=== PATIENT | female | born 1975 | race Native Hawaiian/Other Pacific Islander ===

== ENCOUNTER 2017-09-01 05:27 | Inpatient (IN) | payer OTHER ==
[2017-09-01] VITALS (51 sets, daily range): BP systolic 99–124; BP diastolic 55–80; PULSE 75–139; RESP 16–20; TEMP 97.5–99
[~2017-09-01] VITALS: Ht 167.6 cm; Wt 68.0 kg
[~2017-09-01 05:27] MED LIST: HYDR25 PO; PRED20 PO; RANI300T PO
[2017-09-01] MEDS ORDERED: PREN29TA PO (06:18)
[2017-09-01 06:25] LABS: AUTOMATED NEUTROPHIL # 6.7 TH/MM3 (1.8-7.7); BASOPHIL % 0.4 % (0.0-2.0); EOSINOPHIL # 0.2 TH/MM3 (0-0.4); HEMATOCRIT 33.2 % (35.0-46.0); HEMOGLOBIN 11.5 GM/DL (11.6-15.3); LYMPH % 28.1 % (9.0-44.0); MEAN CELL VOLUME 96.8 FL (80.0-100.0); MEAN CORPUSCULAR HEMOGLOBIN 33.5 PG (27.0-34.0); MEAN CORPUSCULAR HGB CONC 34.6 % (32.0-36.0); MEAN PLATELET VOLUME 9.3 FL (7.0-11.0); MONO % 7.6 % (0.0-8.0); MONOCYTE # 0.8 TH/MM3 (0-0.9); NEUT % 61.9 % (16.0-70.0); PLATELET COUNT 259 TH/MM3 (150-450); RED BLOOD COUNT 3.44 MIL/MM3 (4.00-5.30); RED CELL DISTRIBUTION WIDTH 12.4 % (11.6-17.2); WHITE BLOOD COUNT 10.8 TH/MM3 (4.0-11.0)
[2017-09-01 06:27] LABS: BACTERIA, URINE MOD /hpf; BILIRUBIN, URINE NEG (NEG); BLOOD, URINE NEG (NEG); GLUCOSE,URINE NEG (NEG); KETONE, URINE NEG (NEG); MUCUS URINE FEW /lpf (OCC); NITRITE,URINE NEG (NEG); RENAL EPITHELIAL CELLS 2 /hpf; SQUAMOUS EPITHELIAL CELL URINE 2 /hpf (0-5); TRANSITIONAL EPI CELLS, URINE <1 /hpf; URINE COLOR LIGHT-YELLOW (YELLW/STRAW); URINE LEUKOCYTE ESTERASE NEG (NEG)
[2017-09-01] MEDS ORDERED: LIDOCAINE HCL 1% 50 ML VIAL INFIL PRN (06:45)
[2017-09-01] MEDS ORDERED: OXYTOCIN 30 UNITS/NS 500ML PREMIX IV SCH (06:45)
[2017-09-01] MEDS ORDERED: LIDOCAINE HCL 1% 50 ML VIAL I-DERMAL PRN (06:45)
[2017-09-01] MEDS ORDERED: OXYTOCIN 30 UNITS 500ML PREMIX IV ONE (06:45)
[2017-09-01] MEDS ORDERED: ONDANSETRON HCL 4 MG/2 ML VIAL IV PUSH PRN (06:45)
[2017-09-01] MEDS ORDERED: MINERAL OIL 10 ML VIAL TOPICAL PRN (06:45)
[2017-09-01] MEDS ORDERED: NS 1000 ML IV PRN (06:45)
[2017-09-01] MEDS ORDERED: CITRIC ACID-SODIUM CITRATE LIQ 30 ML UDC PO SCH (06:45)
[2017-09-01] MEDS ORDERED: LACTATED RINGER'S 1000 ML BOLUS IV PRN (06:45)
[2017-09-01] MEDS ORDERED: ZOLPIDEM TARTRATE 10 MG TAB PO PRN (06:45)
[2017-09-01] MEDS ORDERED: NS 500 ML BOLUS IV PRN (06:45)
[2017-09-01] MEDS: LACTATED RINGER'S 1000 ML IV SCH ×2 (06:45→16:03)
[2017-09-01] MEDS ORDERED: fentaNYL 2MCG-BUPIV 0.125% INJ 100 ML ONE (08:57)
[2017-09-01] MEDS ORDERED: DO NOT ADMINISTER ANTICOAGULANTS PRN (10:45)
[2017-09-01] MEDS ORDERED: NO SYSTEM NARCOTICS PRN (10:45)
[2017-09-01] MEDS ORDERED: ePHEDrine/NS 25 MG/5 ML SYRINGE IV PUSH PRN (10:45)
[2017-09-01] MEDS ORDERED: fentaNYL 2MCG-BUPIV 0.125% 100 ML EPIDURAL SCH (11:00)
[2017-09-01] MEDS ORDERED: MEASLES, MUMPS, RUBELLA VACCINE 0.5 ML VIAL SQ ONE (16:00)
[2017-09-01] MEDS ORDERED: DIPHTH/TETANUS/ACEL PERTUSSIS (BOOSTER) 0.5 ML VIAL/PFS IM ONE (16:00)
--- NOTE | 2017-09-01 17:05 | PD.OB.DELI ---
Weeks gestation: 39 Gest age assessed date: Sep 01, 2017 Pt started active labor?: No Medical induction of labor?: Yes Medical induction start date: Sep 01, 2017 Medical induction start time: 06:00 Artificial rupture of membrane: Yes Artificial ROM date: Sep 01, 2017 Artifical ROM time: 08:00 Anesthesia: Epidural Episiotomy: None Vaginal Delivery: Normal Presentation: Occiput anterior Nuchal Cord: None Delayed cord clamping (45 sec): Yes : Male Delivery date: Sep 01, 2017 Delivery time: 16:46 One Minute : 8 Five Minute : 9 Weight: 8-6 Placenta: Spontaneous delivery, Intact, 3 vessel cord Laceration: Vaginal laceration, 1 deg Repair: Chromic interrupted Estimated blood loss: 300 Jania Marin MD Sep 01, 2017 17:04
[2017-09-01] MEDS ORDERED: ALUMINUM/MAGNESIUM/SIMETH 30 ML CUP PO PRN (17:15)
[2017-09-01] MEDS ORDERED: OXYTOCIN 30 UNITS-500ML PREMIX 500 ML IV SCH (17:15)
[2017-09-01] MEDS ORDERED: oxyCODONE/ACETAMINOPHEN 5 MG/325 MG TAB PO PRN ×2 (17:15)
[2017-09-01] MEDS ORDERED: ONDANSETRON ODT 4 MG TAB PO PRN (17:15)
[2017-09-01] MEDS ORDERED: ZOLPIDEM TARTRATE 5 MG TAB PO PRN (17:15)
[2017-09-01] MEDS ORDERED: WITCH HAZEL 50%/GLYCERIN 12.5% 40 PAD JAR TOPICAL PRN (17:15)
[2017-09-01] MEDS ORDERED: SODIUM CHLORIDE 0.9% FLUSH 10 ML FLUSH IV FLUSH PRN (17:15)
[2017-09-01] MEDS ORDERED: ACETAMINOPHEN 325 MG TAB PO PRN (17:15)
[2017-09-01] MEDS ORDERED: DOCUSATE SODIUM 50 MG/SENNA 8.6 MG TAB PO PRN (17:15)
[2017-09-01] MEDS ORDERED: BENZOCAINE 20% TOPICAL SPRAY 60 ML CAN TOPICAL PRN (17:15)
[2017-09-01] MEDS ORDERED: SODIUM CHLORIDE 0.9% FLUSH 10 ML FLUSH IV FLUSH SCH (21:00)
[2017-09-02] MEDS: IBUPROFEN 800 MG TAB PO PRN ×2 (05:21→17:05)
[2017-09-02 08:00] VITALS: BP 97/59; PULSE 76; RESP 18; TEMP 98.5; O2SAT 100
--- NOTE | 2017-09-02 12:10 | HHI.OB ---
Subjective Post Day: 1 Remarks Pt doing well Objective Vitals/I&O Vital Signs Date Time Temp Pulse Resp B/P (MAP) Pulse Ox O2 Delivery O2 Flow Rate FiO2 09/02/17 08:00 98.5 76 18 100 09/02/17 08:00 97/59 (72) 09/01/17 19:30 99.0 97 20 103/59 (74) 09/01/17 18:14 16 09/01/17 18:00 95 110/69 (83) 09/01/17 17:54 16 09/01/17 17:46 98 113/69 (84) 09/01/17 17:33 16 09/01/17 17:31 97 124/75 (91) 09/01/17 17:17 16 09/01/17 17:15 100 111/65 (80) 09/01/17 17:02 18 09/01/17 17:02 112 101/58 (72) 09/01/17 16:23 98.1 09/01/17 16:05 111 09/01/17 16:03 16 09/01/17 16:00 94 112/67 (82) 09/01/17 16:00 125 09/01/17 15:40 124 09/01/17 15:35 104 09/01/17 15:30 110 09/01/17 15:30 103 111/66 (81) 09/01/17 15:10 92 09/01/17 15:05 86 09/01/17 15:00 99 09/01/17 15:00 109 100/64 (76) 09/01/17 14:40 127 09/01/17 14:35 139 09/01/17 14:30 108 110/68 (82) 09/01/17 14:30 104 09/01/17 14:03 97.5 09/01/17 14:03 18 09/01/17 14:00 106 09/01/17 14:00 108 110/64 (79) 09/01/17 12:40 79 09/01/17 12:35 80 09/01/17 12:30 84 107/63 (78) 09/01/17 12:30 84 Objective Remarks GENERAL: Well-nourished, well-developed patient. CARDIOVASCULAR: Regular rate and rhythm without murmurs, gallops, or rubs. RESPIRATORY: Breath sounds equal bilaterally. No accessory muscle use. ABDOMEN/GI: Abdomen soft, non-tender. Fundus: Firm, non-tender at umbilicus. GENITOURINARY: Light to moderate bleeding. EXTREMITIES: No cyanosis or edema, non-tender, without signs of DVT. Medications and IVs Current Medications Medications (Trade) Dose Ordered Sig/Bereket Route Start Time Stop Time Status Last Admin Oxytocin 500 ml @ 0 mls/hr TITRATE IV 09/01/17 06:45 09/01/17 06:45 (Ambien) 10 mg HS PRN PO 09/01/17 06:45 Lactated Ringer's 1,000 ml @ 125 mls/hr Q8H IV 09/01/17 06:45 09/01/17 16:03 Lactated Ringer's 1,000 ml @ 3,000 mls/hr BOLUS PRN IV 09/01/17 06:45 09/01/17 16:03 Sodium Chloride 500 ml @ 1,000 mls/hr BOLUS PRN IV 09/01/17 06:45 Sodium Chloride 1,000 ml @ 100 mls/hr Q10H PRN IV 09/01/17 06:45 (Bicitra Liq) [address] [employer] PO 09/01/17 06:45 09/04/17 06:44 (Zofran Inj) 4 mg Q6H PRN IV PUSH 09/01/17 06:45 09/01/17 14:36 (fentaNYL INJ) 50 mcg Q1H PRN IV PUSH 09/01/17 06:45 (fentaNYL INJ) 100 mcg Q1H PRN IV PUSH 09/01/17 06:45 (Muri-Lube Oil) 10 ml UNSCH PRN TOPICAL 09/01/17 06:45 Fentanyl/ Bupivacaine HCl 100 ml @ 11 mls/hr TITRATE EPIDURAL 09/01/17 11:00 09/01/17 16:03 (NS Flush) 2 ml BID IV FLUSH 09/01/17 21:00 (NS Flush) 2 ml UNSCH PRN IV FLUSH 09/01/17 17:15 (Tylenol) 650 mg Q4H PRN PO 09/01/17 17:15 (Motrin) 800 mg Q8H PRN PO 09/01/17 17:15 09/02/17 05:21 (Percocet 5-325 Mg) 1 tab Q4H PRN PO 09/01/17 17:15 (Percocet 5-325 Mg) 2 tab Q4H PRN PO 09/01/17 17:15 (Americaine 20% Top Spr) 1 spray Q4H PRN TOPICAL 09/01/17 17:15 (Tucks Pads) 1 applic QID PRN TOPICAL 09/01/17 17:15 (Simin-Colace) 2 tab Q12H PRN PO 09/01/17 17:15 (Ambien) 5 mg HS PRN PO 09/01/17 17:15 (Mag-Al Plus Susp Liq) 15 ml Q8H PRN PO 09/01/17 17:15 (Zofran Odt) 4 mg Q6H PRN PO 09/01/17 17:15 Assessment/Plan Assessment and Plan PPD # 1 s/p doing well, routine post care, circ done Jania Marin MD Sep 02, 2017 12:10
--- NOTE | 2017-09-02 12:11 | PD.CIRC ---
Circumcision Procedure Note Procedure Date: Sep 02, 2017 Procedure Time: 12:00 Procedure: Circumcision done with mogan clamp using emla cream , no comp, no bleeding Pre-procedure diagnosis: circumcision Post-procedure diagnosis: circumcision Informed Consent: The risks, benefits, indications, potential complications, and alternatives were explained to the patient/family and informed consent obtained. The baby was brought to the procedure room where a time-out was done to ID the patient and the procedure. Performing Physician: Jania Dove Anesthesia used: Emla cream Device used: Mogen Description: The baby was prepped and draped in a sterile fashion. The procedure followed standard technique. The baby tolerated the procedure well without complication. Specimen: Jania Coe MD Sep 02, 2017 12:11
[2017-09-02 20:00] VITALS: BP 97/58; PULSE 86; RESP 18; TEMP 98; O2SAT 100
[2017-09-03 08:25] VITALS: BP 112/69; PULSE 73; RESP 14; TEMP 97.9
--- NOTE | 2017-09-03 12:26 | HHI.DS ---
Admission Date Sep 01, 2017 at 05:27 Discharge Date: Sep 03, 2017 Admitting Diagnosis IUP at term for induction Diagnosis: Delivery Date: Sep 01, 2017 Vaginal Delivery: Normal Infant: Male Pt Condition on Discharge: Good Discharge Disposition: Discharge Home Discharge Instructions Diet Instructions: As Tolerated, No Restrictions Activities You Can Perform: Pelvic Rest Jania Marin MD Sep 03, 2017 12:26
[2017-09-03] MEDS ORDERED: IBUP1TAB7 PO (12:29)
--- NOTE | 2017-09-03 12:29 | HHI.DCPOC ---
Discharge Care Plan Your Health Problems Are: Vaginal delivery Report Symptoms to Your Doctor -Temperature above 100.5 degrees -Redness, of incision or excessive or foul smelling drainage -Unusual pain or calf pain -Increased vaginal bleeding -Painful or difficulty urinating -Feelings of extreme sadness or anxiety after 2 weeks Goals to Promote Your Health * To prevent worsening of your condition and complications * To maintain your health at the optimal level Directions to Meet Your Goals Take your medications as prescribed Follow your dietary instruction Follow activity as directed Ensure plenty of rest for recovery Drink fluids for hydration Keep your appointments as scheduled Take your immunizations and boosters as scheduled If your symptoms worsen call your PCP, if no PCP go to Urgent Care Center or Emergency Room Smoking is Dangerous to Your Health. Avoid second hand smoke Call the 24-hour crisis hotline for domestic abuse at Jania Marin MD Sep 03, 2017 12:29
== END 2017-09-03 14:00 | disposition home or self-care (01) | DRG 775 ==
LOC: H2EA 05:27 → H1EA 18:26
PROVIDERS: ADMIT Obstetrics & Gynecology; ATTEND Obstetrics & Gynecology
PROC: 10E0XZZ Delivery of Products of Conception, External Approach (ICD-10-PCS; principal; 2017-09-01)
PROC: 3E033VJ Introduction of Other Hormone into Peripheral Vein, Percutaneous Approach (ICD-10-PCS; 2017-09-01)
PROC: 10907ZC Drainage of Amniotic Fluid, Therapeutic from Products of Conception, Via Natural or Artificial Opening (ICD-10-PCS; 2017-09-01)
PROC: 0HQ9XZZ Repair Perineum Skin, External Approach (ICD-10-PCS; 2017-09-01)
DX: O71.4 Obstetric high vaginal laceration alone (principal); Z37.0 Single live birth; Z3A.39 39 weeks gestation of pregnancy
CPT/HCPCS: 59025; 80307; 81001; 85025; 86900; 86901; J2405; J2590; J7120